=== PATIENT | female | born 1945 | race Caucasian/White ===

== ENCOUNTER → 2018-01-28 | Outpatient (CLI) | payer OTHER ==
[2018-01-28 09:17] LABS: BICARBONATE 21.7 mEq/L (22-26); CARBOXY HGB 1.7 % (0-5); COMMENTS - BLOOD GASES NAC+; FI02 21 %; METHEMOGLOBIN 1.1 % (0-1.5); PCO2 32 mm Hg (35-45); PO2 69 mm Hg (80-100); SITE LR; pH 7.44 (7.35-7.45)
[2018-01-28 09:18] LABS: BASE EXCESS -1.5 mEq/L (-3 to +3)
== END | disposition home or self-care (01) ==
LOC: RES 08:52
PROVIDERS: Surgery
DX: R91.1 Solitary pulmonary nodule (principal)
CPT/HCPCS: 36600; 82803; 94060; 94726; 94729

== ENCOUNTER 2018-02-03 08:35 | Inpatient (IN) | payer OTHER ==
[~2018-02-03] VITALS: Ht 167.6 cm; Wt 84.4 kg
[~2018-02-03 08:35] MED LIST: SYNTHROID75 MCG PO
[2018-02-03 14:26] VITALS: BP 134/72
[2018-02-03 15:27] VITALS: BP 11/74
[2018-02-03 20:31] VITALS: BP 118/71
[2018-02-03 23:38] VITALS: BP 137/78
[2018-02-04 04:23] VITALS: BP 145/67
[2018-02-04 06:03] LABS: HEMATOCRIT 43.7 % (36.0-46.0); HEMOGLOBIN 14.4 G/DL (11.9-15.5); MCH 30.5 PG (29.0-34.0); MCV 92.6 FL (83-99); PLATELET COUNT 259 K/uL (156-360); RBC DIS.WIDTH-CV 13.3 % (11.8-14.6); RBC DIS.WIDTH-SD 45.5 % (39-53); RED BLOOD COUNT 4.72 M/uL (3.80-5.20); WHITE BLOOD COUNT 9.1 K/uL (4.1-10.2)
[2018-02-04 06:33] LABS: CHLORIDE 108 MEQ/L (99-109); CREATININE 1.1 MG/DL (0.6-1.3); GFR ESTIMATE (CALCULATED) 52 mL/min/; GLUCOSE 85 mg/dL (70-99); POTASSIUM 4.2 MEQ/L (3.7-5.4); SODIUM 142 MEQ/L (136-147); UREA NITROGEN (BUN) 17 mg/dL (9-23)
[2018-02-04 08:21] VITALS: BP 126/72
[2018-02-04 11:43] VITALS: BP 118/72
[2018-02-04 15:58] VITALS: BP 122/72
[2018-02-04 16:53] VITALS: BP 114/58
== END 2018-02-04 17:49 | disposition home or self-care (01) | DRG 200 ==
LOC: OPR 08:35 → EDSTATUS 09:00 → OPR 09:00 → 5SOUTH 11:26 → 2SOUTH 11:26 → 3EAST 11:26 → 2SOUTH 11:31 → ENRESERV 11:32 → 3EAST 14:03
PROVIDERS: Family Medicine
PROC: 0BBG3ZX Excision of Left Upper Lung Lobe, Percutaneous Approach, Diagnostic (ICD-10-PCS; principal; 2018-02-03)
PROC: 0W9B30Z Drainage of Left Pleural Cavity with Drainage Device, Percutaneous Approach (ICD-10-PCS; 2018-02-03)
DX: J95.811 Postprocedural pneumothorax (principal); Y84.8 Other medical procedures as the cause of abnormal reaction of the patient, or of later complication, without mention of misadventure at the time of the procedure; C34.12 Malignant neoplasm of upper lobe, left bronchus or lung; E03.9 Hypothyroidism, unspecified; Z87.891 Personal history of nicotine dependence
CPT/HCPCS: 32552; 32560; 71045; 77012; 80048; 85027; 88305; 88341 TC; 88342 TC; C1729; C1769; J1650; J3010